=== PATIENT | female | born 1985 | race Caucasian/White ===

== ENCOUNTER → 2017-02-08 | Outpatient (CLI) | payer OTHER ==
[~2017-02-08] VITALS: Ht 175.3 cm; Wt 94.0 kg
[~2017-02-08] MED LIST: ACETAMINOPHEN500 MG PO; Motrin PO; Natalcare Rx,Pramile PO; PERCOCET 5/31 TABLET PO; PRENATAL CAPSU1 EACH PO; PRENATAL TABLE1 EAC3 PO; Percocet 5/325,Endoc PO; STOOL SOFTENER240 MG PO; ~No Medications
[2017-02-08 16:39] VITALS: BP 126/62
== END | disposition home or self-care (01) ==
LOC: IVINF 09:00
DX: Z31.82 Encounter for Rh incompatibility status (principal); Z3A.28 28 weeks gestation of pregnancy; Z67.11 Type A blood, Rh negative
CPT/HCPCS: J2790

== ENCOUNTER 2017-03-12 08:13 | Outpatient (CLI) | payer OTHER ==
[~2017-03-12] VITALS: Ht 160 cm; Wt 97.2 kg
[2017-03-12 11:55] VITALS: BP 110/65
== END 2017-03-12 13:33 | disposition home or self-care (01) ==
LOC: EME 08:13 → LDRP-OP 08:13 → EME 10:53 → EDSTATUS 11:32 → 2WEST 11:35
DX: O26.893 Other specified pregnancy related conditions, third trimester (principal); R10.9 Unspecified abdominal pain; W19.XXXA Unspecified fall, initial encounter; Z3A.33 33 weeks gestation of pregnancy
CPT/HCPCS: 59025; 76805; 82731; G0378

== ENCOUNTER 2017-04-11 11:30 | Outpatient (CLI) | payer OTHER ==
[2017-03-12 11:08] VITALS: BP 116/77
[2017-04-11] VITALS (9 sets, daily range): BP systolic 112–150; BP diastolic 71–82
[2017-04-11 13:40] LABS: UR CREATININE CONCENTRATION 82.2 MG/DL
[2017-04-11 14:02] LABS: BASOPHIL COUNT 0.1 K/uL (0-0.1); EOSINOPHIL (%) 0.9 % (0-5); EOSINOPHIL COUNT 0.1 K/uL (0-0.3); HEMATOCRIT 34.1 % (36.0-46.0); IMMATURE GRANULOCYTE (%) 1.1 % (0.0-0.7); IMMATURE GRANULOCYTE COUNT 0.1 K/uL; INSTRUMENT ABS NEUTROPHIL CT 8.9 K/uL; LYMPHOCYTE COUNT 1.5 K/uL (1.0-2.8); MCH 28.2 PG (29.0-34.0); MCHC 31.4 G/DL (30.0-36.0); MEAN PLAT.VOLUME 12.7 uM^3 (9.5-12.4); MONOCYTE (%) 6.5 % (3-12); MONOCYTE COUNT 0.7 K/uL (0-0.8); NEUTROPHIL COUNT 8.9 K/uL (1.8-6.4); PLATELET COUNT 147 K/uL (156-360); RBC DIS.WIDTH-CV 14.1 % (11.8-14.6); RBC DIS.WIDTH-SD 45.8 % (39-53); RED BLOOD COUNT 3.79 M/uL (3.80-5.20); WHITE BLOOD COUNT 11.3 K/uL (4.1-10.2)
[2017-04-11 14:23] LABS: ALKALINE PHOSPHATASE 131 IU/L (3-129); ANION GAP 10 MEQ/L (2-14); CHLORIDE 108 MEQ/L (99-109); GFR ESTIMATE (CALCULATED) > 59 mL/min/; GLUCOSE 63 mg/dL (70-99); POTASSIUM 4.1 MEQ/L (3.7-5.4); SAMPLE HEMOLYSIS CHECK 0; SAMPLE ICTERIC CHECK 0; SAMPLE LIPEMIA CHECK 0; SODIUM 138 MEQ/L (136-147); TOTAL BILIRUBIN 0.3 MG/DL (0.0-1.0); UREA NITROGEN (BUN) 8 mg/dL (9-23)
== END 2017-04-11 14:35 | disposition home or self-care (01) ==
LOC: LDRP-OP 11:30 → 2WEST 11:31 → LDRP-OP 05-29 13:43
PROVIDERS: Advanced Practice Midwife
DX: O26.893 Other specified pregnancy related conditions, third trimester (principal); R03.0 Elevated blood-pressure reading, without diagnosis of hypertension; R51 Headache; H53.8 Other visual disturbances; R60.9 Edema, unspecified; R10.2 Pelvic and perineal pain; Z3A.37 37 weeks gestation of pregnancy
CPT/HCPCS: 59025; 80053; 82570; 84156; 85025; G0378

== ENCOUNTER 2017-04-17 16:29 | Inpatient (IN) | payer OTHER ==
[~2017-04-17] VITALS: Ht 172.7 cm; Wt 96.0 kg
[2017-04-17] VITALS (12 sets, daily range): BP systolic 117–145; BP diastolic 61–87
[2017-04-17] MEDS ORDERED: ZANTAC150 MG PO (16:50)
[2017-04-17 18:31] LABS: BASOPHIL COUNT 0.1 K/uL (0-0.1); EOSINOPHIL (%) 0.9 % (0-5); EOSINOPHIL COUNT 0.1 K/uL (0-0.3); HEMATOCRIT 35.5 % (36.0-46.0); IMMATURE GRANULOCYTE (%) 0.7 % (0.0-0.7); IMMATURE GRANULOCYTE COUNT 0.1 K/uL; INSTRUMENT ABS NEUTROPHIL CT 7.7 K/uL; LYMPHOCYTE COUNT 1.9 K/uL (1.0-2.8); MCH 28.9 PG (29.0-34.0); MCHC 32.1 G/DL (30.0-36.0); MCV 90.1 FL (83-99); MEAN PLAT.VOLUME 13.1 uM^3 (9.5-12.4); MONOCYTE (%) 6.3 % (3-12); MONOCYTE COUNT 0.7 K/uL (0-0.8); NEUTROPHIL (%) 73.1 % (45-76); NEUTROPHIL COUNT 7.7 K/uL (1.8-6.4); PLATELET COUNT 156 K/uL (156-360); RBC DIS.WIDTH-CV 14.4 % (11.8-14.6); RBC DIS.WIDTH-SD 46.9 % (39-53); RED BLOOD COUNT 3.94 M/uL (3.80-5.20); WHITE BLOOD COUNT 10.5 K/uL (4.1-10.2)
[2017-04-17 19:19] LABS: ALKALINE PHOSPHATASE 153 IU/L (3-129); ANION GAP 12 MEQ/L (2-14); CHLORIDE 108 MEQ/L (99-109); GFR ESTIMATE (CALCULATED) > 59 mL/min/; GLUCOSE 75 mg/dL (70-99); POTASSIUM 4.1 MEQ/L (3.7-5.4); SAMPLE HEMOLYSIS CHECK 0; SAMPLE ICTERIC CHECK 0; SAMPLE LIPEMIA CHECK 0; SODIUM 138 MEQ/L (136-147); UREA NITROGEN (BUN) 10 mg/dL (9-23)
[2017-04-17 19:20] LABS: TOTAL BILIRUBIN 0.2 MG/DL (0.0-1.0)
[2017-04-17 21:48] LABS: UR CREATININE CONCENTRATION 81.2 MG/DL
[2017-04-18] VITALS (13 sets, daily range): BP systolic 114–154; BP diastolic 53–99
[2017-04-18] MEDS ORDERED: MOTRIN800 MG PO (05:37)
[2017-04-19 08:05] VITALS: BP 138/69
== END 2017-04-19 15:05 | disposition home or self-care (01) | DRG 775 ==
LOC: LDRP-OP 16:29 → 2WEST 16:30 → LDRP-OP 05-29 17:42
PROVIDERS: Midwife
PROC: 3E0P7GC Introduction of Other Therapeutic Substance into Female Reproductive, Via Natural or Artificial Opening (ICD-10-PCS; 2017-04-17)
PROC: 3E033VJ Introduction of Other Hormone into Peripheral Vein, Percutaneous Approach (ICD-10-PCS; 2017-04-17)
PROC: 10907ZC Drainage of Amniotic Fluid, Therapeutic from Products of Conception, Via Natural or Artificial Opening (ICD-10-PCS; 2017-04-17)
PROC: 10E0XZZ Delivery of Products of Conception, External Approach (ICD-10-PCS; principal; 2017-04-18)
DX: O41.03X1 Oligohydramnios, third trimester, fetus 1 (principal); O36.0931 Maternal care for other rhesus isoimmunization, third trimester, fetus 1; O99.354 Diseases of the nervous system complicating childbirth; Z37.0 Single live birth; Z3A.38 38 weeks gestation of pregnancy; O76 Abnormality in fetal heart rate and rhythm complicating labor and delivery; G43.909 Migraine, unspecified, not intractable, without status migrainosus; Z52.4 Kidney donor
CPT/HCPCS: 80053; 82570; 83030; 84156; 85025; 86850; 86870; 86900; 86901; C1755; G0378; J0595; J2790; J7120